=== PATIENT | male | born 1995 | race Caucasian/White ===

== ENCOUNTER 2017-02-25 16:45 | Day surgery (SDC) | payer OTHER ==
[2017-02-25] MEDS ORDERED: Ondansetron ODT 4 MG TAB ONE (17:33)
[2017-02-25 18:20] LABS: #Lymphocytes 0.8 thou/uL (1.20-3.40); #Monocytes 0.6 thou/uL (0.11-0.59); #Neutrophils 7.4 thou/uL (1.40-6.50); %Basophils 0.2 % (0.0-1.0); %Lymphocytes 8.6 % (21.0-51.0); Hematocrit 46.5 % (42.0-52.0); Mean Platelet Volume 7.3 fL (7.4-10.4); White Blood Cell (WBC) Count 8.8 thou/uL (4.8-10.8)
[2017-02-25] MEDS ORDERED: Promethazine HCl 25 MG/ML VIAL ONE (18:41)
[2017-02-25 18:42] LABS: ALT (SGPT) 13 U/L (8-55); AST (SGOT) 17 U/L (5-34); Alkaline Phosphatase 58 U/L (40-150); Anion Gap 9 mmol/L (10-20); BUN (Urea Nitrogen) 10 mg/dL (8.9-20.6); Bilirubin, Total 1.3 mg/dL (0.2-1.2); Calc. Creatinine Clearance 0 mL/min (70-130); Calcium 9.8 mg/dL (7.8-10.44); Carbon Dioxide 28 mmol/L (22-29); Chloride 105 mmol/L (98-107); Estimated GFR-MDRD 83; Globulin 2.5 g/dL (2.4-3.5); Lipase 9 U/L (8-78); Protein, Total 7.1 g/dL (6.0-8.3)
[2017-02-25] MEDS ORDERED: Midazolam HCl 2 mg/2 ml Vial ONE (18:58)
[2017-02-25] MEDS ORDERED: Fentanyl 100 MCG/2 ML VIAL ONE (18:58)
[2017-02-25] MEDS ORDERED: Propofol 200 MG/20 ML VIAL ONE (19:13)
[2017-02-25] MEDS ORDERED: Succinylcholine Chloride 20 MG/ML 10 ml SYRINGE FS ONE (19:13)
[2017-02-25] MEDS ORDERED: Lidocaine 1% PF 5 ML VIAL ONE (19:13)
[2017-02-25] MEDS ORDERED: Ondansetron HCl/PF 4 MG/2 ML Vial ONE (19:43)
--- NOTE | 2017-02-25 19:45 | CON ---
DATE OF CONSULTATION: 02/25/2017 HISTORY OF PRESENT ILLNESS: The patient is a 21-year-old male, who was in normal state of health until this evening when he is eating a chili dog, he felt that the hot dog hang up in his es ophagus. When that happens, he feels constriction in his chest and is unable to swallow his own russell abena. He says this has happened multiple times since he was a young child and has undergone an endos copy several times in the past. He has never been diagnosed with eosinophilic esophagitis that he c an recall. PAST MEDICAL HISTORY: Significant for testicular torsion. MEDICATIONS: No prescription medications. ALLERGIES: No known allergies. SOCIAL HISTORY: He drinks occasionally, smokes 3-4 cigarettes per day. FAMILY HISTORY: Negative for GI or liver disease. REVIEW OF SYSTEMS: Ten systems were reviewed and were negative except for above. PHYSICAL EXAMINATION: GENERAL: Shows a thin white male in no acute distress. HEENT: Unremarkable. NECK: Supple. CHEST: Clear. CARDIOVASCULAR: Regular rate and rhythm. ABDOMEN: Soft, nontender without organomegaly or masses. Bowel sounds are present, normoactive. RECTAL: Deferred. EXTREMITIES: Normal. NEUROLOGIC: Nonfocal. ASSESSMENT: 1. Esophageal foreign body. 2. Dysphagia -- long history of dysphagia with multiple previous endoscopies, most consistent with eosinophilic esophagitis. RECOMMENDATIONS: EGD.
--- NOTE | 2017-02-25 19:49 | OP ---
PREOPERATIVE DIAGNOSIS: Esophageal foreign body. PROCEDURE: After informed consent was obtained, the patient placed in the left lateral decubitus po sition. Anesthesia was administered per the Anesthesia Department. Forward viewing endoscope was i nserted into the esophagus under direct visualization with ease and passed to the distal esophagus, where foreign body was noted. This foreign body was pushed are partially removed with snare and the rest pushed through the distal esophagus. The distal esophagus was narrowed and bypass edge of the therapeutic endoscope, this created several mucosal tears dilating the esophagus somewhat. No ball oon or other dilation was performed. Biopsies were taken from the proximal and distal portion of th e duodenum to rule out eosinophilic esophagitis. The remainder of the stomach and duodenum were nor mal. ASSESSMENT: 1. Distal esophageal stricture -- status post dilatation bypass edge of the therapeutic endoscope. 2. Esophageal foreign body -- status post extraction. 3. Otherwise, normal esophagogastroduodenoscopy. RECOMMENDATIONS: 1. Await histopathology. 2. Soft diet. 3. Follow up with me in 2 weeks.
== END 2017-02-25 20:45 | disposition home or self-care (01) ==
LOC: ERS 16:45 → SDC/OP 19:07
PROVIDERS: ATTEND Internal Medicine Gastroenterology
PROC: 0DC58ZZ Extirpation of Matter from Esophagus, Via Natural or Artificial Opening Endoscopic (ICD-10-PCS; principal; 2017-02-25)
PROC: 0DB58ZX Excision of Esophagus, Via Natural or Artificial Opening Endoscopic, Diagnostic (ICD-10-PCS; principal; 2017-02-25)
DX: T18.108A Unspecified foreign body in esophagus causing other injury, initial encounter (principal); K22.2 Esophageal obstruction; K22.10 Ulcer of esophagus without bleeding
CPT/HCPCS: 36415; 80053; 83690; 85025; 88305; 88312; 88313; 96372; 96374; 99406; J1610; J2001; J2250; J2405; J2550; J2704; J3010; Q0162